=== PATIENT | female | born 1955 | race Two or more races ===

== ENCOUNTER 2023-04-18 07:33 | Day surgery (SDC) | payer OTHER | END 2023-04-18 11:15 | disposition home or self-care (01) | LOC: AMB-ENDOS 07:33 | PROVIDERS: ATTEND Internal Medicine Gastroenterology | DX: K29.70 Gastritis, unspecified, without bleeding (principal); R10.13 Epigastric pain; Z20.822 Contact with and (suspected) exposure to COVID-19; Z88.8 Allergy status to other drugs, medicaments and biological substances ==